=== PATIENT | female | born 1980 | race Caucasian/White ===

== ENCOUNTER 2016-06-22 10:06 | Emergency (ER) | payer OTHER ==
[~2016-06-22 10:06] MED LIST: CEPH-264 PO; FLUC150T PO; METR500T4 PO; NAPR500T PO; PRED20TA PO
[2016-06-22 10:20] VITALS: BP 122/62
[2016-06-22] MEDS ORDERED: BACI28.43 TP (10:40)
[2016-06-22] MEDS ORDERED: SULF1TAB24 PO (10:40)
--- NOTE | 2016-06-22 10:40 | PHYS DOC ---
Past Medical History Past Medical History: No Pertinent History Past Surgical History: Appendectomy, Tubal ligation Additional Information: 1 pack per week Alcohol Use: Occasionally Drug Use: Marijuana Adult General Chief Complaint Chief Complaint: SKIN PROBLEM [facility] HPI Patient is a 35 year old female with rash to neck for three weeks with intermittent itching. Has been putting OTC Lotrimin on it and is causing to get worse. Denies known exposure. Review of Systems Review of Systems Constitutional: Denies fever or chills Eyes: Denies change in visual acuity, redness, or eye pain HENT: Denies nasal congestion or sore throat Respiratory: Denies cough or shortness of breath Cardiovascular: No additional information not addressed in HPI GI: Denies abdominal pain, nausea, vomiting, bloody stools or diarrhea : Denies dysuria or hematuria Musculoskeletal: Denies back pain or joint pain Integument: Rash three weeks Neurologic: Denies headache, focal weakness or sensory changes [] Endocrine: Denies polyuria or polydipsia [] Allergies Allergies Allergies Coded Allergies Type Severity Reaction Last Updated Verified No Known Drug Allergies 01/03/16 No Physical Exam Physical Exam Constitutional: Well developed, well nourished, no acute distress, non-toxic appearance. HENT: Normocephalic, atraumatic, bilateral external ears normal, oropharynx moist, no oral exudates, nose normal. Eyes: PERRLA, EOMI, conjunctiva normal, no discharge. Neck: Normal range of motion, no tenderness, supple, no stridor. Cardiovascular:Heart rate regular rhythm, no murmur Lungs & Thorax: Bilateral breath sounds clear to auscultation Abdomen: Bowel sounds normal, soft, no tenderness, no masses, no pulsatile masses. Skin: Two 2cm diameter area of erythema without induration. Back: No tenderness, no CVA tenderness. Extremities: No tenderness, no cyanosis, no clubbing, ROM intact, no edema. [] Neurologic: Alert and oriented X 3, normal motor function, normal sensory function, no focal deficits noted. [] Psychologic: Affect normal, judgement normal, mood normal. [] Current Patient Data Vital Signs Vital Signs Date Time Temp Pulse Resp B/P Pulse Ox O2 Delivery O2 Flow Rate FiO2 06/22/16 10:20 98.7 58 18 100 Room Air 98.7 EKG EKG [] Radiology/Procedures Radiology/Procedures [] Impressions: Contact dermatitis Course & Med Decision Making Course & Med Decision Making Pertinent Labs and Imaging studies reviewed. (See chart for details) [] Dragon Disclaimer Dragon Disclaimer This electronic medical record was generated, in whole or in part, using a voice recognition dictation system. Departure Departure Impression: Primary Impression: Contact dermatitis Disposition: HOME, SELF-CARE Condition: STABLE Referrals: NO PCP (PCP) Patient Instructions: Contact Dermatitis, Shut-as-Hbxx Additional Instructions: May take over the counter Benadryl as directed to assist with itching. Take all medications as directed. Return if problems or concerns Scripts Bacitracin 30 Gm Oint...g.1 David TP BID #30 GM Prov:ESTURADO KING APRN 06/22/16 Sulfamethoxazole/Trimethoprim (Bactrim Ds Tablet)1 Each Tablet1 Each PO BID #14 TAB Prov:ESTUARDO KING APRN 06/22/16 ESTUARDO KING APRN Jun 22, 2016 10:40
== END 2016-06-22 11:18 | disposition home or self-care (01) ==
LOC: ER 10:06
DX: L25.9 Unspecified contact dermatitis, unspecified cause (principal); F12.10 Cannabis abuse, uncomplicated
CPT/HCPCS: 99283

== ENCOUNTER 2017-08-28 18:05 | Emergency (ER) | payer SELFPAY, OTHER ==
[2017-08-28] MEDS: DIPHTH,PERTUSS(ACELL),TET TOX 0.5 ML DISP.SYRIN. VAX IM (18:38)
== END 2017-08-28 18:42 | disposition home or self-care (01) ==
LOC: ER 18:05
DX: S71.151A Open bite, right thigh, initial encounter (principal); F12.10 Cannabis abuse, uncomplicated; Z90.49 Acquired absence of other specified parts of digestive tract; Z98.51 Tubal ligation status; W54.0XXA Bitten by dog, initial encounter; Y93.89 Activity, other specified; Y92.89 Other specified places as the place of occurrence of the external cause; Y99.8 Other external cause status
CPT/HCPCS: 90471; 90715; 99283-25

== ENCOUNTER 2019-07-01 07:52 | Emergency (ER) | payer SELFPAY ==
[~2019-07-01] VITALS: Ht 170.2 cm; Wt 66.0 kg
[~2019-07-01 07:52] MED LIST changes: +AMOX1TAB61 PO; +BACI28.43 TP; +METR-34 PO; -METR500T4 PO; +NAPR-683 PO; -NAPR500T PO; +SULF1TAB24 PO
[2019-07-01] MEDS ORDERED: KETOROLAC 60 MG/2 ML VIAL. IM ONE (08:45)
[2019-07-01] MEDS ORDERED: ORPHENADRINE CITRATE 60 MG/2 ML VIAL. IM ONE (08:45)
--- NOTE | 2019-07-01 08:52 | RAD ---
Exam performed: 2 views of the chest. Indication: Left upper back and left upper chest pain Date of Service: 07/01/2019 8:34 AM . Comparison : None available Findings: PA and lateral radiographs of the chest reveal a normal cardiomediastinal contour. The lungs are clear. No pleural fluid is seen. The visualized osseous structures are unremarkable. Impression: No acute cardiopulmonary process seen. Electronically signed by: Karime Quintero MD (07/01/2019 8:50 AM) [facility]
[2019-07-01] MEDS ORDERED: CYCL10TA2 PO (09:15)
[2019-07-01] MEDS ORDERED: NAPR-682 PO (09:15)
--- NOTE | 2019-07-01 09:16 | PHYS DOC ---
Past Medical History Past Medical History: Other Additional Past Medical Histor: hormone imbalance caused uterine bleeding Past Surgical History: Appendectomy, Tubal ligation Smoking Status: Current Every Day Smoker Alcohol Use: Occasionally Drug Use: None Adult General Chief Complaint Chief Complaint: BACK INJURY [facility] HPI Patient is a 38 year old female presented to ER today for evaluation of left upper back pain, left scapular pain started last night. Patient said the pain is Sharp and aching in nature, sometimes the pain radiated to her left arm and shoulder. Patient felt like her muscle wrapping around her left scapular and pulling it down. Patient denies any nausea or vomiting, no chest pain, no trouble breathing. Patient is not on any control medication, does not have any history of blood clot disorder, no family history of blood clot disorder, no recent travel or operation. Patient said the pain get worse when she got up and walk around or move her left shoulder. The pain is better when she is lying down flat on her back, not moving her chest or left shoulder area. 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 Patient denied any lower back kebede, no abdominal pain. All other ROS is negative unless otherwise noted in HPI Review of Systems Review of Systems See above Current Medications Current Medications Current Medications Medications (Trade) Dose Ordered Sig/Roberto Start Time Stop Time Status Last Admin Dose Admin Ketorolac Tromethamine (Toradol Im) 60 mg 1X ONCE 07/01/19 08:45 07/01/19 08:46 DC 07/01/19 09:15 60 MG Orphenadrine Citrate (Norflex) 60 mg 1X ONCE 07/01/19 08:45 07/01/19 08:46 DC 07/01/19 09:14 60 MG Allergies Allergies Allergies Coded Allergies Type Severity Reaction Last Updated Verified No Known Drug Allergies 01/03/16 No Physical Exam Physical Exam See above Constitutional: Well developed, well nourished, no acute distress, non-toxic appearance. [] HENT: Normocephalic, atraumatic, bilateral external ears normal, oropharynx moist, no oral exudates, nose normal. [] Eyes: PERRLA, EOMI, conjunctiva normal, no discharge. [] Neck: Normal range of motion, no tenderness, supple, no stridor. [] Cardiovascular:Heart rate regular rhythm, no murmur [] Lungs & Thorax: Bilateral breath sounds clear to auscultation. Abdomen: Bowel sounds normal, soft, no tenderness, no masses, no pulsatile masses. [] Skin: Warm, dry, no erythema, no rash. [] Back: There is no midline vertebral lumbar spine or thoracic spine tenderness to palpation. THere is no rash. There is muscle spasm and tenderness to palpation on left scapular area, left trapezoid muscle area. Extremities: No tenderness, no cyanosis, no clubbing, ROM intact, no edema. There is full range of motion of left shoulder area. Neurologic: Alert and oriented X 3, normal motor function, normal sensory function, no focal deficits noted. [] Psychologic: Affect normal, judgement normal, mood normal. [] Current Patient Data Vital Signs Vital Signs Date Time Temp Pulse Resp B/P (MAP) Pulse Ox O2 Delivery O2 Flow Rate FiO2 07/01/19 07:55 97.9 69 22 145/68 (93) 100 Room Air 97.9 EKG EKG [] Radiology/Procedures Radiology/Procedures [][facility] [address] [place] [address] IMAGING REPORT Signed PATIENT: DAVE FLOREZ LACCOUNT: [id number] : 1980 LOCATION: ER AGE: 38 SEX: F EXAM STATUS: PRE ER ORD. PHYSICIAN: CHRIS BELL DO REASON: LEFT UPPER BACK AND LEFT UPPER CHEST PAIN PROCEDURE: CHEST PA & LATERAL Exam performed: 2 views of the chest. Indication: Left upper back and left upper chest pain Date of Service: 07/01/2019 8:34 AM . Comparison : None available Findings: PA and lateral radiographs of the chest reveal a normal cardiomediastinal contour. The lungs are clear. No pleural fluid is seen. The visualized osseous structures are unremarkable. Impression: No acute cardiopulmonary process seen. Electronically signed by: Karime Quintero MD (07/01/2019 8:50 AM) [facility] DICTATED and SIGNED BY: KARIME QUINTERO MD DATE: 07/01/19 0850 Course & Med Decision Making Course & Med Decision Making Pertinent Labs and Imaging studies reviewed. (See chart for details) [Patient is a 38-year-old female who was evaluating ER due to left scapular and left upper back pain. Her pain is most likely due to muscle spasm and muscle st rain from lifting boxes at work that she just started a new job recently. Patient was recommended to take anti-inflammatory medication at home for pain, she will need to follow up with her family for evaluation. SHe was prescribed muscle relaxer. Dragon Disclaimer Dragon Disclaimer This electronic medical record was generated, in whole or in part, using a voice recognition dictation system. Departure Departure Impression: Primary Impression: Musculoskeletal back pain Disposition: HOME, SELF-CARE Condition: STABLE Referrals: NO PCP (PCP) follow up with your doctor as needed next week for reevaluation. Patient Instructions: Musculoskeletal Pain Additional Instructions: Thank you for visiting our Emergency Department. We appreciate you trusting us with your care. If any additional problems come up don't hesitate to return to visit us. Please follow up with your primary care provider so they can plan additional care if needed and know about the problem that you had. If symptoms worsen come back to the Emergency Department. Any concerning symptoms that start such as chest pain, shortness of air, weakness or numbness on one side of the body, running high fevers or any other concerning symptoms return to the ER. Scripts Cyclobenzaprine Hcl (CYCLOBENZAPRINE HCL) 10 Mg Tablet 1 TAB PO TID PRN for MUSCLE SPASMS, #15 TAB Prov: CHRIS BELL DO 07/01/19 Naproxen Sodium (ANAPROX DS) 550 Mg Tablet 1 TAB PO BID for pain for 15 Days, #30 TAB 0 Refills Prov: CHRIS BELL DO 07/01/19 CHRIS BELL DO Jul 01, 2019 09:16
[2019-07-01 09:50] VITALS: BP 113/59
[2019-07-02] MEDS ORDERED: DIAZ5TAB PO (11:33)
[2019-07-02] MEDS ORDERED: LIDO700A21 TP (11:33)
== END 2019-07-01 09:52 | disposition home or self-care (01) ==
LOC: ER 07:52
DX: M54.6 Pain in thoracic spine (principal); F17.200 Nicotine dependence, unspecified, uncomplicated; Z90.89 Acquired absence of other organs; Z98.51 Tubal ligation status
CPT/HCPCS: 71046; 96372; 99284; J1885; J2360

== ENCOUNTER 2019-07-02 08:49 | Emergency (ER) | payer SELFPAY ==
[~2019-07-02] VITALS: Ht 170.2 cm; Wt 65.9 kg
[~2019-07-02 08:49] MED LIST changes: +CYCL10TA2 PO; +NAPR-682 PO
[2019-07-02 09:50] VITALS: BP 160/67
[2019-07-02] MEDS ORDERED: diazePAM 5 MG TABLET PO STA (09:57)
[2019-07-02] MEDS ORDERED: LIDOCAINE 2% 20 ML VIAL. IJ STA (09:57)
--- NOTE | 2019-07-02 10:05 | PHYS DOC ---
Past Medical History Past Medical History: Other Additional Past Medical Histor: hormone imbalance caused uterine bleeding Past Surgical History: Appendectomy, Tubal ligation Smoking Status: Current Every Day Smoker Alcohol Use: Occasionally Drug Use: None Adult General Chief Complaint Chief Complaint: [facility] HPI Patient is a 38 year old female who presents with left shoulder pain that started yesterday morning around 2 AM. 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 The patient states it feels better lay flat. She states the pain radiates left arm when she moves her arm. She states it hurts to touch her upper back. Rates her pain as 10 out of 10 in severity and sharp. Pain is so severe that on arrival to the ER the patient was laying on the floor of the waiting room. Denies chest pain, or any additional symptoms. Complete ROS were reviewed and found to be within normal limits, except as documented in the HPI Current Medications Current Medications Current Medications Medications (Trade) Dose Ordered Sig/Roberto Start Time Stop Time Status Last Admin Dose Admin Diazepam (Valium) 5 mg 1X STAT 07/02/19 09:57 07/02/19 10:02 DC 07/02/19 10:33 5 MG Lidocaine HCl 20 ml 1X STAT 07/02/19 09:57 07/02/19 10:02 DC 07/02/19 10:34 20 ML Allergies Allergies Allergies Coded Allergies Type Severity Reaction Last Updated Verified No Known Drug Allergies 01/03/16 No Physical Exam Physical Exam Constitutional: Well developed, well nourished, no acute distress, non-toxic appearance. [] HENT: Normocephalic, atraumatic, bilateral external ears normal, oropharynx moist, no oral exudates, nose normal. [] Eyes: PERRLA, EOMI, conjunctiva normal, no discharge. [] Neck: Normal range of motion, no tenderness, supple, no stridor. [] Skin: Warm, dry, no erythema, no rash. [] Back: Tenderness to L trapezius muscle with trigger points. Extremities: No tenderness, no cyanosis, no clubbing, ROM intact, no edema. [] Neurologic: Alert and oriented X 3, normal motor function, normal sensory function, no focal deficits noted. [] Psychologic: Affect normal, judgement normal, mood normal. [] Current Patient Data Vital Signs Vital Signs Date Time Temp Pulse Resp B/P (MAP) Pulse Ox O2 Delivery O2 Flow Rate FiO2 07/02/19 09:50 98.3 68 18 160/67 (98) 100 Room Air 98.3 EKG EKG [] Radiology/Procedures Radiology/Procedures [] Course & Med Decision Making Course & Med Decision Making Pertinent Labs and Imaging studies reviewed. (See chart for details) Will give Valium and then do trigger point injections. Performed 2 trigger point injections with 1 mL of lidocaine per injection in 2 trigger points in L trapezius muscle. Decreased pain from 10 to 6. Dragon Disclaimer Dragon Disclaimer This electronic medical record was generated, in whole or in part, using a voice recognition dictation system. Departure Departure Impression: Primary Impression: Musculoskeletal back pain Disposition: HOME, SELF-CARE Condition: STABLE Referrals: NO PCP (PCP) Patient Instructions: Musculoskeletal Pain Additional Instructions: Thank you for visiting [facility]. We appreciate you trusting us with your care. If any additional problems come up don't hesitate to return to visit us. Please follow up with your primary care provider so they can plan additional care if needed and know about the problem that you had. If symptoms worsen come back to the Emergency Department. Any concerning symptoms that start such as chest pain, shortness of air, weakness or numbness on one side of the body, running high fevers or any other concerning symptoms return to the ER. Please use ibuprofen 400 mg every 6 hours for anti-inflammatory effect. Also please get a ThermaCare Heat Patch and use per label instructions. Please fill your medications at any pharmacy and follow the prescription instructions. Scripts Lidocaine (Lidocaine PATCH ) 1 Each Adh..patch 1 EACH TP DAILY for FOR LOCAL PAIN for 10 Days, #10 PATCH REMOVE AFTER 12 HOURS Prov: DYLON ZAPATA APRN 07/02/19 Diazepam (VALIUM) 5 Mg Tablet 5 MG PO BID for 5 Days, #10 TAB Prov: DYLON ZAPATA APRN 07/02/19 DYLON ZAPATA APRN Jul 02, 2019 10:05
[2019-07-02] MEDS ORDERED: DIAZ5TAB PO (11:33)
[2019-07-02] MEDS ORDERED: LIDO700A21 TP (11:33)
== END 2019-07-02 11:45 | disposition home or self-care (01) ==
LOC: ER 08:49
DX: M54.6 Pain in thoracic spine (principal); M25.512 Pain in left shoulder; F17.200 Nicotine dependence, unspecified, uncomplicated; Z90.89 Acquired absence of other organs; Z98.51 Tubal ligation status; Z98.890 Other specified postprocedural states
CPT/HCPCS: 20552; 99284; J2001

== ENCOUNTER 2020-03-25 15:22 | Emergency (ER) | payer SELFPAY ==
[~2020-03-25] VITALS: Ht 170.2 cm; Wt 68.0 kg
[~2020-03-25 15:22] MED LIST changes: +DIAZ5TAB PO; +LIDO700A21 TP
--- NOTE | 2020-03-25 16:57 | PHYS DOC ---
Past Medical History Past Medical History: Other Additional Past Medical Histor: hormone imbalance caused uterine bleeding Past Surgical History: Appendectomy, Tubal ligation Smoking Status: Current Every Day Smoker Alcohol Use: Occasionally Drug Use: None General Adult EDM: Chief Complaint: PELVIC PAIN HPI: HPI: History obtained from patient. Patient is a 39-year-old female with a history of chlamydia and gonorrhea infection who presents with vaginal discharge. States she first noticed a vaginal discharge 1 month ago shortly following her period. She states that it resolved spontaneously. States she has not had symptoms until 2 days ago. States she finished her most recent period 2 days ago and noted yellowish-green discharge in the tampon. Denies any retained tampon. Does note some lower abdominal cramping pain. Denies any low back pain. Denies any dyspareunia. States that. Was otherwise normal. States he is sexually active with one partner. Denies fevers. Notes 1 episode of vomiting 3 days ago. Denies any history of TOA or PID. Denies urinary symptoms. No other complaints. Review of Systems: Review of Systems: Constitutional: Denies fever or chills. [] Eyes: Denies change in visual acuity. [] HENT: Denies nasal congestion or sore throat. [] Respiratory: Denies cough or shortness of breath. [] Cardiovascular: Denies chest pain or edema. [] GI: Positive for abdominal pain : Positive for vaginal discharge Musculoskeletal: Denies back pain or joint pain. [] Integument: Denies rash. [] Neurologic: Denies headache, focal weakness or sensory changes. [] Endocrine: Denies polyuria or polydipsia. [] Lymphatic: Denies swollen glands. [] Psychiatric: Denies depression or anxiety. [] Heart Score: Risk Factors: Risk Factors: DM, Current or recent (<one month) smoker, HTN, HLP, family history of CAD, obesity. Risk Scores: Score 0 - 3: 2.5% MACE over next 6 weeks - Discharge Home Score 4 - 6: 20.3% MACE over next 6 weeks - Admit for Clinical Observation Score 7 - 10: 72.7% MACE over next 6 weeks - Early Invasive Strategies Allergies: Allergies: Allergies Coded Allergies Type Severity Reaction Last Updated Verified No Known Drug Allergies 01/03/16 No Physical Exam: PE: Constitutional: Well developed, well nourished, no acute distress, non-toxic appearance. [] HENT: Normocephalic, atraumatic, bilateral external ears normal, oropharynx moist, no oral exudates, nose normal. [] Eyes: PERRLA, EOMI, conjunctiva normal, no discharge. [] Neck: Normal range of motion, no tenderness, supple, no stridor. [] Cardiovascular:Heart rate regular rhythm, no murmur [] Lungs & Thorax: Bilateral breath sounds clear to auscultation [] Abdomen: Soft, nontender, nonacute abdomen. No involuntary guarding or rigidity noted. No acute peritonitis. : Mild clear vaginal discharge noted. No blood appreciated. Negative CMT. Negative adnexal tenderness bilaterally. No masses palpated. Skin: Warm, dry, no erythema, no rash. [] Back: No tenderness, no CVA tenderness. [] Extremities: No tenderness, no cyanosis, no clubbing, ROM intact, no edema. [] Neurologic: Alert and oriented X 3, normal motor function, normal sensory function, no focal deficits noted. [] Psychologic: Affect normal, judgement normal, mood normal. [] Current Patient Data: Labs: Laboratory Tests Test 03/25/20 16:35 03/25/20 16:39 Urine Collection Type Unknown Urine Color Yellow Urine Clarity Clear Urine pH 5.5 Urine Specific [place] 1.025 Urine Protein Negative mg/dL Urine Glucose (UA) Negative mg/dL Urine Ketones (Stick) Negative mg/dL Urine Blood Negative Urine Nitrite Negative Urine Bilirubin Negative Urine Urobilinogen Dipstick 0.2 mg/dL Urine Leukocyte Esterase Small Urine RBC 1-2 /HPF Urine WBC 11-20 /HPF Urine Squamous Epithelial Cells Mod /LPF Urine Bacteria Few /HPF Urine Hyaline Casts Moderate /HPF Urine Mucus Marked /LPF Bedside Urine HCG, Qualitative Hcg negative Current Medications Medications (Trade) Dose Ordered Sig/Roberto Route PRN Reason Start Time Stop Time Status Last Admin Dose Admin Metronidazole (Flagyl) 2,000 mg 1X ONCE PO 03/25/20 17:45 03/25/20 17:46 DC 03/25/20 17:50 Ceftriaxone Sodium (Rocephin Im) 250 mg 1X ONCE IM 03/25/20 17:45 03/25/20 17:46 DC 03/25/20 17:51 Azithromycin (Zithromax) 1,000 mg 1X ONCE PO 03/25/20 17:45 03/25/20 17:46 DC 03/25/20 17:50 Fluconazole (Diflucan) 100 mg 1X ONCE PO 03/25/20 17:45 03/25/20 17:46 DC 03/25/20 17:50 Laboratory Tests Test 03/25/20 16:39 POC Urine HCG, Qualitative Hcg negative (Negative) Vital Signs: Vital Signs Date Time Temp Pulse Resp B/P (MAP) Pulse Ox O2 Delivery O2 Flow Rate FiO2 03/25/20 17:15 98.8 66 18 143/71 (95) 99 Room Air 98.8 EKG: EKG: [] Radiology/Procedures: Radiology/Procedures: [facility] [address] [place] [address] IMAGING REPORT Signed PATIENT: DAVE FLOREZ LACCOUNT: [id number] : 1980 LOCATION: ER AGE: 39 SEX: F EXAM STATUS: REG ER ORD. PHYSICIAN: JAIRO BROOKS DO REASON: lower abdominal pain with vaginal discharge PROCEDURE: PELVIS COMPLETE Examination: Ultrasound pelvis complete HISTORY: History of pelvic pain, vaginal discharge COMPARISON: None available FINDINGS: The uterus measures 9.8 x 5.7 x 4.8 cm . The endometrium is 1 cm in thickness. Right ovary measures 3.1 x 3.0 x 2.3 cm . The left ovary measures 2.1 x 1.6 x 1.7 cm Blood flow identified in the right and left ovaries. There is structure identified in the right ovary measuring 3.3 cm. IMPRESSION: 1. 3.3 cm cystic structure identified in the right ovary probably a cyst. Electronically signed by: Isiah Cordova MD (03/25/2020 5:46 PM) [id number] DICTATED and SIGNED BY: ISIAH CORDOVA MD DATE: 03/25/20 1746 [] Course & Med Decision Making: Course & Med Decision Making Pertinent Labs and Imaging studies reviewed. (See chart for details) [] Patient is a 39-year-old female presents with chief complaint of vaginal discharge and lower abdominal cramping. Pelvic exam noted above. Exam consistent with bacterial vaginosis. However patient is quite concerned for infection. She is requesting prophylactic antibiotics. She was given 2000 mg of Flagyl, 250 mg of intramuscular Rocephin, 1000 mg of oral azithromycin, and 100 mg of oral fluconazole. Ultrasound does reveal a likely ovarian cyst in the right adnexa. This likely explains her symptoms. No signs of TOA or torsion. I do feel is reasonable to discharge patient home at this time. Urinalysis shows no evidence of infection. Gonorrhea clinicals are pending and patient will be notified of positive results. Return precautions were discussed and understood. She was given an ENGINEERING DIRECTOR to follow-up with. Patient agreeable to this plan. I provided verbal discharge instructions regarding their emergency department diagnosis. If you had any diagnostic studies ( Labs or Xray's, CAT scan, Ultrasound ) have your PCP (Primary Care Physician) review them with you since there may be results that require further follow up or investigation. Prognosis, expected clinical course, and return precautions were reviewed. I answered the patients questions and instructed them to return if any new or worsening symptoms develop. The patient expressed understanding of the instructions and reported that all of their questions had been answered. [employer] Disclaimer: [employer] Disclaimer: This electronic medical record was generated, in whole or in part, using a voice recognition dictation system. Departure Departure Impression: Primary Impression: Ovarian cyst Qualified Codes: N83.201 - Unspecified ovarian cyst, right side Additional Impression: Vaginal discharge Disposition: 01 DC HOME SELF CARE/HOMELESS Condition: STABLE Referrals: NO PCP (PCP) DYLON SERNA MD Patient Instructions: Bacterial Vaginosis, Ovarian Cyst Additional Instructions: Please follow-up with your primary care physician next 2 to 3 days. [facility] [address] [place] [address] [facility] [address] [place] [address] [facility] [address] [facility] [facility] [place] [address] [facility] [address] [place] [address] [facility] [address] [place] [address] [facility] [address] [place] [address] [facility] [address] [place] [address] [facility] [address] [place] [address] [facility] [address] [place] [address] [facility] [address] [place] [address] Scripts Metronidazole (METRONIDAZOLE) 500 Mg Tablet 1 TAB PO BID for 7 Days, #14 TAB 0 Refills Do not consume alcohol taking this antibiotic Prov: JAIRO BROOKS DO 03/25/20 JAIRO BROOKS DO Mar 25, 2020 16:57
[2020-03-25 17:02] LABS: BILIRUBIN,URINE NEGATIVE (NEG); CLARITY,URINE CLEAR; COLOR,URINE YELLOW; NITRITE,URINE NEGATIVE (NEG); PH,URINE 5.5 (<5.0-8.0); PROTEIN,URINE NEGATIVE (NEG-TRACE); UROBILINOGEN,URINE 0.2 mg/dL (0.2 mg/dL)
[2020-03-25 17:09] LABS: HYALINE CASTS, URINE MODERATE /HPF
[2020-03-25 17:11] LABS: BACTERIA,URINE FEW /HPF (0-FEW)
[2020-03-25] MEDS ORDERED: FLUCONAZOLE 100 MG TABLET. PO ONE (17:45)
[2020-03-25] MEDS ORDERED: metroNIDAZOLE 500 MG TABLET PO ONE (17:45)
[2020-03-25] MEDS ORDERED: cefTRIAXone IM 250 MG VIAL IM ONE (17:45)
[2020-03-25] MEDS ORDERED: AZITHROMYCIN 250 MG TABLET. PO ONE (17:45)
--- NOTE | 2020-03-25 17:49 | RAD ---
Examination: Ultrasound pelvis complete HISTORY: History of pelvic pain, vaginal discharge COMPARISON: None available FINDINGS: The uterus measures 9.8 x 5.7 x 4.8 cm . The endometrium is 1 cm in thickness. Right ovary measures 3.1 x 3.0 x 2.3 cm . The left ovary measures 2.1 x 1.6 x 1.7 cm Blood flow identified in the right and left ovaries. There is structure identified in the right ovary measuring 3.3 cm. IMPRESSION: 1. 3.3 cm cystic structure identified in the right ovary probably a cyst. Electronically signed by: Isiah Schneider MD (03/25/2020 5:46 PM) [id number]
[2020-03-25] MEDS ORDERED: METR-34 PO (18:22)
[2020-03-25 18:25] VITALS: BP 123/70
[2020-03-27 21:11] LABS: GC PROBE Positive (Negative)
== END 2020-03-25 18:27 | disposition home or self-care (01) ==
LOC: ER 15:22
DX: N83.291 Other ovarian cyst, right side (principal); N89.8 Other specified noninflammatory disorders of vagina; R10.30 Lower abdominal pain, unspecified; F17.200 Nicotine dependence, unspecified, uncomplicated; Z90.89 Acquired absence of other organs; Z98.51 Tubal ligation status
CPT/HCPCS: 76856; 81001; 81025; 87086; 87491; 87591; 96372; 99284; J0696; Q0111